=== PATIENT | female | born 1990 | race Caucasian/White ===

== ENCOUNTER 2018-07-23 12:58 | Emergency (ER) | payer OTHER, SELFPAY ==
[2018-07-23 13:50] VITALS: BP 132/94; PULSE 110; RESP 17; TEMP 36.9; O2SAT 98
--- NOTE | 2018-07-23 17:02 | ED.HA ---
HPI - Headache <Yumiko Hernández PA-C - Last Filed: 07/23/18 22:11> General Chief Complaint: Headache Stated Complaint: states severe headache after a lumbar puncture Time Seen by Provider: 07/23/18 16:57 Source: patient Limitations: no limitations History of Present Illness HPI Narrative: This 28-year-old female is sent to ED by her PCP requesting a blood patch. She has a long history of migraines, however states a week ago she developed a headache that was unusual for her, not typical of her usual migraines, with worse pain, and stiff neck as well as some diplopia per her PCP. She was seen at another local ED 4 days ago for workup of this headache, had labs, CT and LP which she states were negative for any acute findings. Note from her PCP reiterates this as well, but we have been unable to reach the other ED for records (no answer). She states headache feels like throbbing in her frontal area, much worse if she tries to sit or stand up and has nausea with that. She vomited once earlier today, unable to keep down food or fluids. Headache is somewhat more tolerable lying flat. She denies any vision change. She states she is not having any trouble with talking or movement aside from it worsening the headache. She states that the stiff neck that she had initially is also resolved. She has not had any new fever or any other new changes with this headache today. Her PCP phone here requesting consideration of a blood patch as she was unable to coordinate this with anesthesiology directly at the other hospital. Related Data Home Medications Medication Instructions Recorded Confirmed amitriptyline 10 - 20 mg PO BEDTIME 07/23/18 07/23/18 magnesium oxide 400 mg PO DAILY 07/23/18 07/23/18 propranolol 20 mg PO BID 07/23/18 Allergies Allergy/AdvReac Type Severity Reaction Status Date / Time No Known Drug Allergies Allergy Verified 07/23/18 13:58 Review of Systems <Yumiko Hernández PA-C - Last Filed: 07/23/18 22:11> Review of Systems ROS Unobtainable: All systems reviewed & are unremarkable except as noted in HPI and below PFSH <NIKI Hanna Last Filed: 07/23/18 22:11> Medical History Dyspepsia (Chronic) History of depression (Chronic) Migraine (Chronic) Seasonal allergies (Chronic) Surgical History No pertinent past surgical history (Chronic) Social History Smoking Status: Never smoker Social History Smoking Status: Never smoker Exam <Yumiko Hernández PA-C - Last Filed: 07/23/18 22:11> Narrative Exam Narrative: GENERAL APPEARANCE: Patient resting comfortably, in no distress. HEENT: PERRL, EOMI, normal TMs and oropharynx NECK: Supple LUNGS: Clear to auscultation bilaterally. HEART: Rate and rhythm regular without murmur, normal S1 and S2, no S3 or S4. ABDOMEN: Soft, NT, ND, + BS x 4 quadrants NEUROLOGIC: Alert and oriented, normal speech and coordination. MUSCULOSKELETAL: Full Csp AROM, nontender DERM: No exanthem Initial Vital Signs Initial Vital Signs: Vital Signs Temperature 98.5 F 07/23/18 13:50 Pulse Rate 110 H 07/23/18 13:50 Respiratory Rate 17 07/23/18 13:50 Blood Pressure 132/94 H 07/23/18 13:50 Pulse Oximetry 98 07/23/18 13:50 <Aniya Vasquez DO - Last Filed: 07/24/18 08:51> Initial Vital Signs Initial Vital Signs: Vital Signs Temperature 98.5 F 07/23/18 13:50 Pulse Rate 110 H 07/23/18 13:50 Respiratory Rate 17 07/23/18 13:50 Blood Pressure 132/94 H 07/23/18 13:50 Pulse Oximetry 98 07/23/18 13:50 Course <Yumiko Hernández PA-C - Last Filed: 07/23/18 22:11> Additional Information: I spoke with Dr. Pond , on-call for anesthesiology, and reviewed notes from patient's PCP as well as history, typical for LP induced headache. He was kind enough to come directly to the ED and perform a blood patch. Patient rested in the ED for nearly 2 hr following and was feeling significantly improved, able to tolerate p.o. fluids. She will rest at home this weekend. Advised return to ED if any acutely worsening symptoms and she is agreeable. Orders Ordered: Discontinued Medications Ondansetron HCl (Zofran) 4 mg IV NOW ONE Stop: 07/23/18 17:15 Last Admin: 07/23/18 17:43 Dose: 4 mg Vital Signs - 8 hr 07/23/18 18:24 07/23/18 19:37 Pulse Rate 82 91 H Respiratory Rate 16 17 Blood Pressure [Right Arm] 134/78 129/71 Pulse Oximetry 100 99 <Aniya Vasquez DO - Last Filed: 07/24/18 08:51> Orders Ordered: Discontinued Medications Ondansetron HCl (Zofran) 4 mg IV NOW ONE Stop: 07/23/18 17:15 Last Admin: 07/23/18 17:43 Dose: 4 mg Vital Signs - 8 hr 07/23/18 18:24 07/23/18 19:37 Pulse Rate 82 91 H Respiratory Rate 16 17 Blood Pressure [Right Arm] 134/78 129/71 Pulse Oximetry 100 99 Discharge Plan Departure Patient Disposition: Home Clinical Impression: Post lumbar puncture headache Discharge Date/Time: 07/23/18 20:26 Interventions: ED Discharge Assessment Last Done: 07/23/18 20:25 Instructions: DI for Epidural Blood Patch Activity Restrictions/Additional Instructions: Since you are feeling better you can return home and rest this weekend. Please lies flat on your back as much as you can. You can get up briefly for trips to the bathroom, etc, but otherwise you should rest. You can take Tylenol as needed for pain, and sometimes caffeine is helpful as well. Please make sure you follow-up with your PCP on Thursday to assess her progress and see whether you are ready to return to your normal activities. Please return to the closest ED as we talked about if you have any acutely worsening symptoms again, i.e. worsening headache, persistent vomiting, new symptoms such as fever etc Prescriptions: No Action magnesium oxide 400 mg (241.3 mg magnesium) tablet 400 mg PO DAILY RF: 0 amitriptyline 10 mg tablet 10 - 20 mg PO BEDTIME RF: 0 propranolol 20 mg Tablet 20 mg PO BID RF: 0 Referrals: Carroll Meza MD [Non-Staff] - <Aniya Vasquez DO - Last Filed: 07/24/18 08:51> Cosign ED Attending Cosignature Attestation: I was immediately available in the department for consultation. This documentation has been reviewed and I agree with assessment and plan. Supervised by Aniya Vasquez, DO
[2018-07-23] MEDS: ONDANSETRON 4 MG/2 ML INJ IV (17:43)
--- NOTE | 2018-07-23 18:13 | PM.PROC.1 ---
Procedures Date/Time Date of procedure: 07/23/18 Time of procedure: 17:55 Lumbar Puncture Pre-procedure diagnosis: SAB Headache Post-procedure diagnosis: same Time Out Performed: Yes Patient Position: left lateral decubitus Skin Prep: Povidone-Iodine 1% Local anesthetic used: Lidocaine 1% Sedation: none Needle size: other (18 Tuohy) Needle length: 3.5 Interspace: L3/4 Number of attempts: 1 Fluid collected (mL): 0 Complications: No Patient tolerance: Tolerated well Comments: #25 skin wheal L3/4 1% lidocaine. #18 Tuohy to epidural space with OLI at 5 cm. 3cc 1% preservative free lidocaine injected. 18 IV placed right antecubital vein after iodine prep. 20 cc blood withdrawn sterilely and injected in epidural space without difficulties. Patient placed supine for one hour, then discharged home with instructions to remain supine 12-24 hours. Cautioned that may need to be repeated. No complications. Tolerated well.
[2018-07-23 18:24] VITALS: BP 134/78; PULSE 82; RESP 16; O2SAT 100
--- NOTE | 2018-07-23 18:31 | PM.PROC.1 ---
Procedures Date/Time Date of procedure: 07/23/18 Time of procedure: 18:30
[2018-07-23 19:37] VITALS: BP 129/71; PULSE 91; RESP 17; O2SAT 99
== END 2018-07-23 20:26 | disposition home or self-care (01) ==
PROVIDERS: Emergency Provider Internal Medicine
DX: G97.1 Other reaction to spinal and lumbar puncture (principal)
CPT/HCPCS: 36591; 62273; 96374; 99283; 99284; J2405